=== PATIENT | male | born 1955 | race Caucasian/White ===

== ENCOUNTER 2017-03-10 09:33 | Emergency (ER) | payer BC ==
[~2017-03-10] VITALS: Ht 175.3 cm; Wt 87.5 kg
[2017-03-10] MEDS ORDERED: HYDROCODONE-APA1 TA1 PO (09:53)
[2017-03-10] MEDS ORDERED: ENALAPRIL MALEA10 MG PO (09:54)
[2017-03-10] MEDS ORDERED: FLEXERIL10 MG PO (09:54)
[2017-03-10] MEDS ORDERED: APRESOLINE 10MG10 MG PO (09:55)
[2017-03-10] MEDS ORDERED: FLUOXETINE20 MG PO (09:55)
--- NOTE | 2017-03-10 09:57 | Emergency Room Report ---
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 N Clinical Suspician of Infection? N Mental Status: 1 - Regular (Normal Baseline) Sepsis Risk:Low Sepsis Risk Have you (or family members/close friends) recently traveled outside the [place]? N If Yes, where/when: Have you had exposure to infectious disease within the past month? TB? Other? Specify: Patient does lifting at work, has chronic DJD, and awoke four days ago with bilateral shoulder pain worse with turning head from side to side, no trauma, numbness or tingling. He takes opiates for chronic pain, along with four Aleve and Flexeril. Patient of Dr. Owens in [place]. Incidentally, he removed a tick from his neck one week ago but denies fever, denies rash, denies localized pain or redness to site, and no new joint pain. ALLERGIES Coded Allergies: No Known Allergies (03/10/17) Home Medications Reported Medications HYDROCODONE 5MG/APAP 325MG (Hydrocodon-Acetaminophen 5-325) 1 TAB PO Q4HP PRN PAIN Cyclobenzaprine Hcl (Flexeril) 5 MG PO BID Enalapril Maleate 10 MG PO DAILY HYDRALAZINE HCL (Hydralazine HCl) 10 MG PO BID Fluoxetine Hcl (Fluoxetine 20MG) 20 MG PO DAILY History Medical History General CAD? No Angina: No [place]: No Hypertension? Yes Hyperlipidemia? No CHF? No DVT? No PE? No COPD? No Asthma? No Anemia? No GERD? No Gastric ulcers? No GI Bleed? No Hernia? No Thyroid Problems? No Hypothyroidism? No CVA? No Seizures? No Diabetes? No UTI? Yes Stones? Yes BPH? No GB Disease: No Hepatitis? No Sickle Cell Disease? No Arthritis? Yes Immunization Hx Ped.Immunizations UTD Yes DT/Tetanus 5-10 Years Ago Surgical Hx Previous Surgery?Y BOWEL RESECTION BILAT CARPAL TUNNEL LITHOTRIPSY AND LYMPH BACK SURGERY Social History Smoking Hx Smoker: Current Every Day Smoker Tobacco: Yes Type Cigarettes Packs/day < 1 Pack Are you/the child exposed to second-hand smoke: No Alcohol Alcohol: No Review of Systems All Other Systems Reviewed and Negative Musculoskeletal see HPI Comment tick exposure, see hpi; no rashes Physical Exam Vital Signs Vital Signs Date Time Temp Pulse Resp B/P Pulse O2 O2 Flow FiO2 Ox Delivery Rate 03/10 0950 97.7 74 18 153/77 95 General Appearance normal appearance, WD/WN, no apparent distress Eye Exam - bilateral eye normal exam, bilateral eye PERRL, bilateral eye EOMI Ear, Nose, Throat hearing grossly normal (grossly normal) Neck No tick bite, no erythema, no embedded head of tick noted on examination of integument and scalp/hair. Patient has pain over bilateral trapezius muscles, increased when turning head from side to side. He has NO meningismus, negative Kernig's, negative Brudzinski's. No santhosh stiffness on examination. Respiratory Status Yes: trachea midline, chest symmetrical, non tender chest. No: respiratory distress, tender on palpation, use of accessory muscles, pain on inspiration, pain on expiration, productive cough, non productive cough. Lung Sounds bilateral: normal breath sounds, lungs clear. Cardiovascular normal exam, regular rate/rhythm, no peripheral edema, no gallop, no JVD, no murmur, no rub, normal peripheral pulses Gastrointestinal normal bowel sounds, normal exam, non tender, soft, no organomegaly, no pulsatile mass, no guarding, no rebound Extremities non-tender, normal range of motion, normal inspection, normal capillary refill, no pedal edema Strength 4 Upper Ext (L), 4 Upper Ext (R), 4 Lower Ext (L), 4 Lower Ext (R) Neurologic alert, normal exam, no motor/sensory deficits, oriented x 3 Glascow Coma Scale Glascow Coma Scale Response Value EYE response: 4 Spontaneously 4 MOTOR response: 6 OBEYS 6 VERBAL response: 5 Oriented & Converses 5 Total 15 Skin intact, normal color, warm/dry (NO ECM, no tick bite; no rash) Lymphatic no adenopathy Medical Decision Making LABS/Meds/Orders Pt receiving controlled substance in ED? No Results/Orders Laboratory Tests 03/10/17 0955: Sodium 141, Potassium 4.1, Chloride 106, Carbon Dioxide 27, BUN 22 H, Creatinine 0.8, Estimated Creat Clear 120, Estimated GFR (MDRD) 98, Glucose 140 H, Calcium 8.9, Total Bilirubin 0.2, AST 11 L, ALT 27, Alkaline Phosphatase 104 , Total Protein 7.2, Albumin 3.1 L, Globulin 4.1 H, Albumin/Globulin Ratio 0.8 L, WBC 10.2, RBC 4.67, Hgb 14.1, Hct 42.5, MCV 91.0, RDW 13.5, Plt Count 257, MPV 6.1 L, Gran % 56.7, Gran # 5.8, Lymphocytes % 32.6, Monocytes % 5.9, Eosinophils % 4.2, Basophils % 0.7, Lymphocytes # 3.3, Monocytes # 0.6, Eosinophils # 0.4, Basophils # 0.1, PUBS MCHC 33.1, ESR Pending, MCH 30.1 Current Medication Orders Sig/Ruma Start time Last Medication Dose Route Stop Time Status Admin Sodium Chloride 10 ML PRN PRN 03/10 1000 AC IV 03/11 0956 Orders Procedure Date/time Status IV SALINE LOCK 03/10 09 Active SED RATE 03/10 0956 Active CBC WITH AUTO DIFF 03/10 956 Active CHEM 12 PROFILE 03/10 956 Complete Progress ED Progress Notes 1 Date 03/10/17 Time 1022 Comment clinically, patient has musculoskeletal pain. He is afebrile, he has no meningismus, no rash, no tick bite, no target lesions, no evidence of ECM. Very low suspicion for Lyme disease, but with exposure, will cover with antibiotics. ED Progress Notes 2 Date 03/10/17 Time 1030 Comment Final diagnosis to include exposure to tick. Departure Departure Time of Disposition 1028 Disposition DC Home or Self Care(routine) Clinical Impression Primary Impression: Musculoskeletal neck pain Secondary Impressions: History of chronic pain Condition STABLE Referrals DANITZA OWENS (Family) Patient Instructions DI for Musculoskeletal Pain Additional Instructions Medrol dosepack. Continue Aleve, Flexeril, and narcotics; see Dr. Owens in [place] for recheck in 24 hours. Although you have no rash, we will cover with antibiotics due to tick exposure one week ago. Discharge Counseling Counseled pt/family regarding diagnosis, test results, medications/RX, home care, follow up needs Prescriptions Current Visit Scripts Methylprednisolone (Medrol Dose Jimbo) 4 MG PO UD #1 JIMBO TAKE DIRECTED ON PACKAGING Doxycycline Hyclate 100 MG PO BID #20 CAP any form of available Doxycycline acceptable ED Critical Care Critical Care No at 1036
[2017-03-10 10:04] LABS: HEMOGLOBIN 14.1 g/dL (14.1-18.0); LYMPH # 3.3 K/mm3 (0.7-4.5); LYMPH % 32.6 % (10-50)
[2017-03-10] MEDS ORDERED: DOXYCYCLINE100 M1 PO (10:34)
[2017-03-10] MEDS ORDERED: MEDROL 4MG. DOSE4 MG PO (10:34)
[2017-03-10 10:45] VITALS: BP 153/77
--- OUTSIDE RECORDS SUMMARY | 2017-03-16 05:14 | External Medical Summary Rpt ---
Demographics Preferred Language Greenlandic Marital Status Unknown Buddhist Affiliation Unknown Race Unknown Ethnic Group Unknown Author Author , Organization [employer] Address Unknown Phone Unavailable Purpose Continuity of Care Document - through 2016 Immunization No patient found.
--- OUTSIDE RECORDS SUMMARY | 2017-03-16 05:14 | External Medical Summary Rpt ---
Author Author , Organization [employer] Address Unknown Phone Unavailable Care Team Providers Care 3D Technologist Name Role Phone SALAZAR MORE Unavailable Unavailable SALAZAR MORE Unavailable Unavailable Purpose Continuity of Care Document - 04-11-2014 through 2016 Problems Code Diagnosis DOS Provider Status 4660 ACUTE 04-11-2014 SALAZAR RAMIREZ BRONCHITIS 496 CHRONIC 04-11-2014 SALAZAR RAMIREZ AIRWAY OBSTRUCTION NEC Encounters Encounter Start End Date Code Location Performer Type Date OFFICE 72502 SALAZAR RAMIREZ OUTPATIEN 4 4 T VISIT 15 MINUTES
--- OUTSIDE RECORDS SUMMARY | 2017-03-16 05:14 | External Medical Summary Rpt ---
Author Author , Organization [employer] Address Unknown Phone Unavailable Care Team Providers Care Fish Frog Or Oyster Farmer Name Role Phone SALAZAR MORE Unavailable Unavailable SALAZAR MORE Unavailable Unavailable Purpose Continuity of Care Document - 04-11-2014 through 2016 Problems Code Diagnosis DOS Provider Status 4660 ACUTE 04-11-2014 SALAZAR RAMIREZ BRONCHITIS 496 CHRONIC 04-11-2014 SALAZAR RAMIREZ AIRWAY OBSTRUCTION NEC Encounters Encounter Start End Date Code Location Performer Type Date OFFICE 94807 SALAZAR RAMIREZ OUTPATIEN 4 4 T VISIT 15 MINUTES
--- OUTSIDE RECORDS SUMMARY | 2017-03-16 05:14 | External Medical Summary Rpt ---
Author Author KATHYARABELLA Chase, [employer] Address Unknown Phone Unavailable Results CBC W Auto Differential panel in Blood Observa Value Referen Units Interpr Notes Date tion ce etation Range Basophils 0 - 0.2 K/MM3 Normal No March 10 informati 2016 9:55 [#/volume on in AM ] in source Blood by data Automated count Basophils 0.1 - 2.0 % Normal No March 10 informati 2016 9:55 leukocyte on in AM s in source Blood by data Automated count Eosinophi 0.0 - 0.4 K/mm3 Normal No March 10 ls informati 2016 9:55 [#/volume on in AM ] in source Blood by data Automated count Eosinophi 0.1 - % Normal No March 10 ls/100 12.0 informati 2016 9:55 leukocyte on in AM s in source Blood by data Automated count Granulocy 1.3 - 8.0 K/mm3 Normal No March 10 erin informati 2016 9:55 [#/volume on in AM ] in source Blood by data Automated count Granulocy 37.0 - % Normal No March 10 erin/100 80.0 informati 2016 9:55 leukocyte on in AM s in source Blood by data Automated count Hematocri 42.0 - % Normal No March 10 t [Volume 52.0 informati 2016 9:55 on in AM Fraction] source of Blood data Hemoglobi 14.1 - g/dL Normal No March 10 n 18.0 informati 2016 9:55 [Mass/vol on in AM ume] in source Blood data Lymphocyt 0.7 - 4.5 K/mm3 Normal No March 10 es informati 2016 9:55 [#/volume on in AM ] in source Unspecifi data ed specimen by Automated count Lymphocyt 10 - 50 % Normal No March 10 es informati 2016 9:55 [#/volume on in AM ] in source Unspecifi data ed specimen by Automated count Erythrocy 27 - 31.2 pg Normal No March 10 te mean informati 2017 9:55 corpuscul on in AM ar source hemoglobi data n [Entitic mass] Erythrocy 31.8 - g/dl Normal No March 10 te mean 35.4 informati 2016 9:55 corpuscul on in AM ar source hemoglobi data n concentra tion [Mass/vol ume] by Automated count Erythrocy 82.2 - fl Normal No March 10 te mean 97.8 informati 2016 9:55 corpuscul on in AM ar volume source [Entitic data volume] by Automated count Monocytes 0.1 - 1.0 K/mm3 Normal No March 10 informati 2016 9:55 [#/volume on in AM ] in source Blood by data Automated count Monocytes 1.7 - 9.3 % Normal No March 10 /100 informati 2016 9:55 leukocyte on in AM s in source Blood by data Automated count Platelet 7.4 - fl Low No March 10 mean 10.4 informati 2016 9:55 volume on in AM [Entitic source volume] data in Blood by Automated count Platelets 142 - 424 K/mm3 Normal No March 10 informati 2016 9:55 [#/volume on in AM ] in source Blood data Erythrocy 4.6 - 6.2 M/mm3 Normal No March 10 erin informati 2016 9:55 [#/volume on in AM ] in source Amniotic data fluid Erythrocy 11.5 - % Normal No March 10 te 17.5 informati 2016 9:55 distribut on in AM ion width source [Entitic data volume] by Automated count Leukocyte 4.8 - K/MM3 Normal No March 10 s 10.8 informati 2016 9:55 [#/volume on in AM ] in source Blood data Erythrocyte sedimentation rate by Westergren method Observa Value Referen Units Interpr Notes Date tion ce etation Range Erythrocy 0 - 20 mm/hr High No March 10 te informati 2016 9:55 sedimenta on in AM tion rate source by data Westergre n method Comprehensive metabolic 2000 panel in Serum or Plasma Observa Value Referen Units Interpr Notes Date tion ce etation Range Albumin/G 1.1 - 1.8 No Low No March 10 lobulin informati informati 2016 9:55 [Mass on in on in AM ratio] in source source Serum or data data Plasma Albumin 3.4 - 5.0 gm/dL Low No March 10 [Mass/vol informati 2017 9:55 ume] in on in AM Serum or source Plasma data Alkaline 46 - 116 U/L Normal No March 10 phosphata informati 2016 9:55 se on in AM [Enzymati source c data activity/ volume] in Serum or Plasma Bilirubin 0.2 - 1.0 mg/dL Normal No March 10 .total informati 2016 9:55 [Mass/vol on in AM ume] in source Serum or data Plasma Urea 7 - 18 mg/dL High No March 10 nitrogen informati 2016 9:55 [Mass/vol on in AM ume] in source Serum or data Plasma Calcium 8.5 - mg/dL Normal No March 10 [Mass/vol 10.1 informati 2016 9:55 ume] in on in AM Serum or source Plasma data Chloride 98 - 107 mmoL/L Normal No March 10 [Moles/vo informati 2016 9:55 lume] in on in AM Serum or source Plasma data Carbon 21.0 - mmoL/L Normal No March 10 dioxide, 32.0 informati 2016 9:55 total on in AM [Moles/vo source lume] in data Serum or Plasma Creatinin 0.70 - mg/dL Normal No March 10 e 1.30 informati 2016 9:55 [Mass/vol on in AM ume] in source Serum or data Plasma Creatinin 50 - 200 ML/MIN Normal No March 10 e renal informati 2016 9:55 clearance on in AM source predicted data by Cockcroft -Gault formula Estimated >60 ML/MIN No REFERENCE March 10 informati RANGE: 2017 9:55 glomerula on in >60 AM r source ML/MIN/1. filtratio data 73 SQUARE n rate METERSIf (GF this patient is -A merican, then multiply theresult by 1.210. Globulin 1.3 - 3.2 gm/dL High No March 10 [Mass/vol informati 2016 9:55 ume] in on in AM Serum source data Glucose 74 - 106 mg/dL High No March 10 [Mass/vol informati 2016 9:55 ume] in on in AM Serum or source Plasma data Potassium 3.5 - 5.1 mmoL/L Normal No March 10 informati 2016 9:55 [Moles/vo on in AM lume] in source Serum or data Plasma Sodium 136 - 145 mmoL/L Normal No March 10 [Moles/vo informati 2017 9:55 lume] in on in AM Serum or source Plasma data Aspartate 15 - 37 U/L Low No March 10 informati 2016 9:55 aminotran on in AM sferase source [Enzymati data c activity/ volume] in Serum or Plasma Alanine 12 - 78 U/L Normal No March 10 aminotran informati 2016 9:55 sferase on in AM [Enzymati source c data activity/ volume] in Serum or Plasma Protein 6.4 - 8.2 gm/dL Normal No March 10 [Mass/vol informati 2017 9:55 ume] in on in AM Serum or source Plasma data
--- OUTSIDE RECORDS SUMMARY | 2017-03-16 05:14 | External Medical Summary Rpt ---
Author Author , Organization [employer] Address Unknown Phone Unavailable Care Team Providers Care Silo Erector Name Role Phone SALAZAR MORE Unavailable Unavailable SALAZAR MORE Unavailable Unavailable Purpose Continuity of Care Document - 04-11-2014 through 2016 Problems Code Diagnosis DOS Provider Status 4660 ACUTE 04-11-2014 SALAZAR RAMIREZ BRONCHITIS 496 CHRONIC 04-11-2014 SALAZAR RAMIREZ AIRWAY OBSTRUCTION NEC M54.2 CERVICALGIA Z87.898 PERSONAL HISTORY OF OTHER SPECIFIED CONDITIONS Encounters Encounter Start End Date Code Location Performer Type Date OFFICE 02884 SALAZAR RAMIREZ OUTPATIEN 4 4 T VISIT 15 MINUTES
--- OUTSIDE RECORDS SUMMARY | 2017-03-16 05:14 | External Medical Summary Rpt ---
Author Author , Organization [employer] Address Unknown Phone Unavailable Care Team Providers Care Nursing Associate Name Role Phone SALAZAR MORE Unavailable Unavailable SALAZAR MORE Unavailable Unavailable Purpose Continuity of Care Document - 04-11-2014 through 2016 Problems Code Diagnosis DOS Provider Status 4660 ACUTE 04-11-2014 SALAZAR RAMIREZ BRONCHITIS 496 CHRONIC 04-11-2014 SALAZAR RAMIREZ AIRWAY OBSTRUCTION NEC M54.2 CERVICALGIA Z87.898 PERSONAL HISTORY OF OTHER SPECIFIED CONDITIONS Encounters Encounter Start End Date Code Location Performer Type Date OFFICE 90994 SALAZAR RAMIREZ OUTPATIEN 4 4 T VISIT 15 MINUTES
--- OUTSIDE RECORDS SUMMARY | 2017-03-16 05:14 | External Medical Summary Rpt ---
Demographics Preferred Language Mongolian Marital Status Unknown Evangelical Affiliation Unknown Race Unknown Ethnic Group Unknown Author Author , Organization [employer] Address Unknown Phone Unavailable Purpose Continuity of Care Document - through 2016 Immunization No patient found.
== END 2017-03-10 10:45 | disposition home or self-care (01) ==
LOC: UTC 09:33 → ER 09:44
PROVIDERS: Emergency Medicine
DX: M54.2 Cervicalgia (principal); M15.9 Polyosteoarthritis, unspecified; I10 Essential (primary) hypertension; Z72.0 Tobacco use